=== PATIENT | female | born 1975 | race African-American/Black ===

== ENCOUNTER 2019-05-26 17:27 | Emergency (ER) | payer MEDICAID ==
[~2019-05-26] VITALS: Ht 167.6 cm; Wt 73.0 kg
[2019-05-26 22:09] LABS: CLARITY URINE CLOUDY (CLEAR); COLOR URINE DARK YELLOW (YELLOW); KETONES URINE 3+ (NEGATIVE); LEUKOCYTE ESTERASE URINE 2+ (NEGATIVE); NITRITE URINE NEGATIVE (NEGATIVE); OCCULT BLOOD URINE 3+ (NEGATIVE); PROTEIN URINE 1+ (NEGATIVE)
[2019-05-26] MEDS ORDERED: KETOROLAC 60MG/2ML VIAL IM ONE (22:30)
[2019-05-26 22:47] LABS: BASOPHILS % 0.3 % (0.0-2.0); HEMATOCRIT. 37.9 % (36.0-48.0); LYMPHOCYTES % 8.1 % (20.0-50.0); MEAN CORPUSCULAR HEMOGLOBIN 32.1 pg (28.0-32.0); MEAN CORPUSCULAR VOLUME 93.5 fL (81.0-99.0); MEAN PLATELET VOLUME 7.2 fl (7.4-10.4); MONOCYTES % 7.7 % (2.0-8.0); NEUTROPHILS % 82.9 % (40.0-76.0); PLATELET 353 x1000/uL (130-400); RED BLOOD CELL COUNT 4.05 mill/uL (4.2-5.4); RED CELL DISTRIBUTION WIDTH 14.9 % (11.6-14.6)
[2019-05-26 22:51] LABS: CHLORIDE 106 mEq/L (98-107)
[2019-05-27 01:30] VITALS: BP 124/70
== END 2019-05-27 02:14 | disposition home or self-care (01) ==
LOC: ER 17:27
DX: N39.0 Urinary tract infection, site not specified (principal); R74.0 Nonspecific elevation of levels of transaminase and lactic acid dehydrogenase [LDH]; Z90.49 Acquired absence of other specified parts of digestive tract
CPT/HCPCS: 36415; 74021; 76705; 80053; 81003; 81025; 83690; 85025; 87086; 96372; 99284; J1885; Z7610

== ENCOUNTER 2022-05-06 20:53 | Emergency (ER) | payer MEDICAID ==
[~2022-05-06] VITALS: Ht 167.6 cm; Wt 37.0 kg
[~2022-05-06 20:53] MED LIST: HYDR-4001 PO; MORP15TA54 MT; ONDA4TAB5 MT
[2022-05-06 20:57] VITALS: BP 124/90
== END 2022-05-07 01:39 | disposition left against medical advice (07) ==
LOC: ER 21:05
DX: Z53.21 Procedure and treatment not carried out due to patient leaving prior to being seen by health care provider (principal)

== ENCOUNTER 2022-05-07 02:57 | Emergency (ER) | payer MEDICAID, OTHER ==
[~2022-05-07] VITALS: Ht 157.5 cm; Wt 37.0 kg
[2022-05-07] MEDS ORDERED: HYDROCODONE/ACETAMINOPHEN 5/325MG TABLET PO ONE (05:00)
[2022-05-07 06:00] VITALS: BP 142/80
== END 2022-05-07 06:35 | disposition home or self-care (01) ==
LOC: ER 02:57
DX: R10.84 Generalized abdominal pain (principal); G89.29 Other chronic pain; Z85.9 Personal history of malignant neoplasm, unspecified; Z90.49 Acquired absence of other specified parts of digestive tract; Z87.19 Personal history of other diseases of the digestive system
CPT/HCPCS: 99283